=== PATIENT | female | born 1965 | race African-American/Black ===

== ENCOUNTER 2024-07-17 11:09 | Outpatient (CLI) | payer OTHER, SELFPAY | END 2024-07-17 11:10 | disposition home or self-care (01) | LOC: ANHAUDIO 11:13 | PROVIDERS: PCP Internal Medicine; Visit Provider Otolaryngology | DX: H90.3 Sensorineural hearing loss, bilateral (principal); H93.19 Tinnitus, unspecified ear; I67.1 Cerebral aneurysm, nonruptured; G43.909 Migraine, unspecified, not intractable, without status migrainosus; H81.01 Meniere's disease, right ear | CPT/HCPCS: 92557; 92567 ==